=== PATIENT | female | born 1990 | race African-American/Black ===

== ENCOUNTER 2019-01-21 11:29 | Outpatient (CLI) | payer OTHER ==
--- NOTE | 2019-01-21 12:21 | ULT ---
OBSTETRIC SONOGRAM: HISTORY: Second trimester gestation. evaluation. FINDINGS: Multiple transabdominal sonographic views of the gravid uterus show a single intrauterine gestation i n breech presentation. Cervix is closed and 4.5 cm. Grade 0 placenta is anterior. Uterine contraction is seen at times along the anterior wall, deep to the placenta. Amniotic fluid is within normal limits. Four-chamber heart shows motion at 145 bpm. spine and kidneys are intact as visualized. No pearl s intracranial abnormalities are apparent. Three-vessel cord shows a normal insertion. Measurements are as follows: Biparietal diameter 18 weeks 5 days. Head circumference 18 weeks 4 days. Abdominal circumference 18 weeks 4 days. Femur length 19 weeks 4 days. [place] 91 percentile. Estimated date of delivery based on today's sonogram 06/18/2019. IMPRESSION: Single viable intrauterine gestation with estimated gestational age based on today's sonogram of 18 w eeks 6 days. Transcribed Date/Time: 01/21/2019 12:26 PM
== END 2019-01-21 11:30 | disposition home or self-care (01) ==
LOC: SCSULT 11:29
PROVIDERS: ATTEND Family Medicine
DX: Z34.82 Encounter for supervision of other normal pregnancy, second trimester (principal); Z3A.18 18 weeks gestation of pregnancy
CPT/HCPCS: 76805

== ENCOUNTER 2019-05-21 22:15 | Day surgery (SDC) | payer OTHER ==
[2019-05-21 23:04] VITALS: BP 115/73; TEMP 99.1; BMI 24.9
[2019-05-21] MEDS ORDERED: Ondansetron HCl/PF 4 MG in Sodium Chloride 0.9% 50 ML IVPB PRN (23:27)
--- NOTE | 2019-05-21 23:33 | PDOC.LDHP ---
Labor and Delivery H&P Chief complaint: other (vomiting) HPI: 29 y/o at 35w2d, patient of Yvonne Lester, presents with N/V today and unable to tolerate PO. Having some constant abdominal pain and GERD. Denies VB , LOF, ctx, or other concerns. +FM ROS neg for HEENT, cv, pulm, gi, gu, neuro, psych, skin, musculoskeletal or constitutional symptoms other than mentioned above. OB History Details: prior LTCS for NRFHTS Current complications: none Past Medical History: Denies Current medications: pre- vitamins Previous surgical history: low tranverse CS Allergies/Adverse Reactions: Allergies Allergy/AdvReac Type Severity Reaction Status Date / Time No Known Allergies Allergy Unverified 05/21/19 22:53 Social history: none - Physical Exam Vital signs reviewed and normal: yes General: NAD, resting Lungs: nonlabored breathing Abdomen: gravid Extremeties: no edema FHT: category 1 (130s, mod variability, + accels, no decels) Alianza contractions every: irregular - Assessment 29 y/o at 35w2d with N/V, GERD. Given LR and Zofran with resolution of symptoms. Declined SVE but denies feeling ctx. status reassuring with reactive NST. - Plan -: D/c home with precautions. Advised to keep all appointments.
[2019-05-21] MEDS ORDERED: Ondansetron PF 4 MG/2 ML Vial IVP PRN (23:38)
[2019-05-21] MEDS ORDERED: Ondansetron PF 4 MG/2 ML Vial ONE (23:41)
[2019-05-21] MEDS ORDERED: Lactated Ringer's 1,000 ML IV SCH (23:45)
== END 2019-05-22 00:25 | disposition home or self-care (01) ==
LOC: ERS 22:15 → SDC/OP 22:15 → L&D/OP 22:15 → EDSTATUS 22:28 → L&D/OP 05-22 00:25
PROVIDERS: ATTEND Family Medicine
DX: O21.2 Late vomiting of pregnancy (principal); O99.613 Diseases of the digestive system complicating pregnancy, third trimester; K21.9 Gastro-esophageal reflux disease without esophagitis; Z3A.35 35 weeks gestation of pregnancy
CPT/HCPCS: 96360; 96375; 99282; J2405

== ENCOUNTER 2019-06-20 23:45 | Inpatient (IN) | payer MEDICAID, OTHER, SELFPAY ==
[2019-06-21 00:27] VITALS: BMI 25.7
[2019-06-21] MEDS ORDERED: hydrALAZINE 20 MG/ML VIAL SLOW IVP PRN ×3 (00:39→10:50)
[2019-06-21] MEDS ORDERED: Promethazine HCl 25 MG/ML VIAL IM PRN ×2 (00:40→04:40)
[2019-06-21] MEDS: Butorphanol Tartrate 1 MG/ML VIAL SLOW IVP PRN ×2 (01:01→03:32)
[2019-06-21] MEDS ORDERED: Ibuprofen 800 MG TAB PO PRN (03:22)
[2019-06-21] MEDS ORDERED: HYDROcodone/Acetaminophen 5/325 mg Tablet PO PRN ×2 (03:22→10:50)
[2019-06-21] MEDS ORDERED: Lidocaine 1% (PF) 30 ML VIAL SC PRN (03:22)
[2019-06-21] MEDS ORDERED: Ondansetron PF 4 MG/2 ML Vial IVP PRN ×3 (03:22→10:50)
[2019-06-21] MEDS ORDERED: NS / Oxytocin 40 units/1000ml 1,000 ML IV PRN (03:22)
[2019-06-21] MEDS ORDERED: Lactated Ringer's 1,000 ML IV SCH ×2 (03:30)
[2019-06-21 03:48] LABS: Hemoglobin 12.3 g/dL (12.0-16.0); Mean Corpuscular HGB CONC 33.5 g/dL (32.0-36.0); Mean Corpuscular Hemoglobin 29.1 pg (27.0-31.0); Mean Corpuscular Volume 86.8 fL (78.0-98.0); Mean Platelet Volume 8.8 fL (7.4-10.4); Platelet Count 295 thou/uL (130-400); RBC Distribution Width 12.8 % (11.5-14.5); Red Blood Cell (RBC) Count 4.22 mill/uL (4.20-5.40); White Blood Cell (WBC) Count 8.2 thou/uL (4.8-10.8)
[2019-06-21] MEDS ORDERED: Fentanyl 4 mcg/Bup 0.1% Cadd 100 ML ONE (04:11)
[2019-06-21 04:26] LABS: Hep B Surf Ag Non-Reactive S/CO (NonReactive); Syphilis Antibody Nonreactive (Nonreactive); Syphilis Antibody Index 0.04 S/CO (<1.00 Non-Reactive)
[2019-06-21] MEDS ORDERED: Lactated Ringer's 500 ML IV PRN (04:40)
[2019-06-21] MEDS ORDERED: ePHEDrine/0.9% NaCl/PF SYRINGE 50 mg/10 ml SLOW IVP PRN (04:40)
[2019-06-21] MEDS ORDERED: Acetaminophen 325 MG TAB PO PRN (04:40)
[2019-06-21] MEDS ORDERED: Naloxone HCl 0.4 mg/ml Vial IVP PRN ×2 (04:40)
[2019-06-21] MEDS ORDERED: diphenhydrAMINE 50 MG/ML VIAL IVP PRN (04:40)
[2019-06-21] MEDS ORDERED: Communication Order-Pharmacy FS SCH (04:45)
[2019-06-21] MEDS ORDERED: Fentanyl 4 mcg/Bupivacaine 0.1% Cassette 100 ML EPIDURAL SCH (04:45)
[2019-06-21] MEDS ORDERED: Acetaminophen/Codeine 30-300mg Tablet PO PRN (10:50)
[2019-06-21] MEDS ORDERED: NS / Oxytocin 40 units/1000ml 1,000 ML IV SCH (10:50)
[2019-06-21] MEDS ORDERED: Lanolin Ointment 7 GM TUBE TOP PRN (10:50)
[2019-06-21] MEDS ORDERED: Benzocaine-Menthol 82.5 ML CAN TOP PRN (10:50)
[2019-06-21] MEDS ORDERED: Bisacodyl 10 MG SUPP PR PRN (10:50)
[2019-06-21] MEDS ORDERED: Preparation H Ointment 28 GM TUBE PR PRN (10:50)
[2019-06-21] MEDS ORDERED: diphenhydrAMINE 25 MG CAP PO PRN (10:50)
[2019-06-21] MEDS ORDERED: Milk Of Magnesia 30 ML UDCUP PO PRN (10:50)
[2019-06-21] MEDS: Ibuprofen 800 MG TAB PO SCH ×2 (14:03→21:21)
[2019-06-21] MEDS ORDERED: Bupivacaine/Epinephrine 0.25% 30 ML VIAL ONE (15:00)
[2019-06-21] MEDS: Docusate Calcium (SURFAK) 240 MG CAP PO SCH (21:21)
[2019-06-22] MEDS ORDERED: Sodium Chloride 0.9% 10 ML ONE (00:31)
[2019-06-22] MEDS: Ibuprofen 800 MG TAB PO SCH ×3 (06:07→22:21)
--- NOTE | 2019-06-22 07:59 | PDOC.PP ---
Post Progress Note Post Day #: 1 Subjective: Doing well. BF well. C/O some cramping type pain only. Controlled with meds. Wants to go home tomorrow. PO intake tolerated: yes Flatus: yes Ambulation: yes Vital Signs (12 hours) Temp Pulse Resp BP BP Pulse Ox 06/22/19 07:42 98.1 F 66 15 103/69 99 06/22/19 04:45 97.7 F 72 16 99/49 L 99 06/22/19 00:20 98.5 F 72 20 108/65 100 Weight Weight 169 lb - Physical Examination General: NAD Cardiovascular: no m/r/g, RRR Respiratory: clear to auscultation bilaterally, non-labored breathing Abdominal: + bowel sounds, lochia, no distention, appropriately TTP Extremities: negative homans (B) Neurological: no gross focal deficits Result Diagrams: 06/21/19 03:37 Additional Labs: Post Labs Blood Type B NEGATIVE 06/21/19 03:37 Hep Bs Antigen Non-Reactive S/CO (NonReactive) 06/21/19 03:37 (1) , delivered Code(s): O34.219 - MATERNAL CARE FOR UNSP TYPE SCAR FROM PREVIOUS DEL Status: Acute - Assessment/Plan Routine PP care Plan to D/C tomorrow F/U with AD in 2 weeks
[2019-06-22] MEDS: Docusate Calcium (SURFAK) 240 MG CAP PO SCH ×2 (08:11→22:21)
[2019-06-22] MEDS: Prenatal Vitamin 1 TAB PO SCH (08:11)
[2019-06-23] MEDS: Ibuprofen 800 MG TAB PO SCH ×2 (05:53→14:24)
[2019-06-23 08:54] VITALS: BP 108/77; TEMP 98.9
[2019-06-23] MEDS: Docusate Calcium (SURFAK) 240 MG CAP PO SCH (08:54)
[2019-06-23] MEDS: Prenatal Vitamin 1 TAB PO SCH (08:54)
--- NOTE | 2019-06-23 10:12 | PDOC.PP ---
Post Progress Note Post Day #: 2 Subjective: Doing well. Cramping improving. PO intake tolerated: yes Flatus: yes Ambulation: yes Vital Signs (12 hours) Temp Pulse Resp BP Pulse Ox 06/23/19 08:49 98.9 F 75 20 108/77 06/23/19 03:30 98.3 F 66 18 116/70 99 06/22/19 23:41 98.5 F 88 18 119/67 99 Weight Weight 169 lb - Physical Examination General: NAD Cardiovascular: no m/r/g, RRR Respiratory: clear to auscultation bilaterally, non-labored breathing Abdominal: + bowel sounds, lochia, no distention, appropriately TTP Result Diagrams: 06/21/19 03:37 Additional Labs: Post Labs Blood Type B NEGATIVE 06/21/19 03:37 Hep Bs Antigen Non-Reactive S/CO (NonReactive) 06/21/19 03:37 (1) , delivered Code(s): O34.219 - MATERNAL CARE FOR UNSP TYPE SCAR FROM PREVIOUS DEL Status: Acute - Assessment/Plan Routine care D/C home F/U with AD in 6 weeks Pelvic rest Ibuprofen PRN
== END 2019-06-23 14:30 | disposition home or self-care (01) | DRG 807 ==
LOC: L&D/OP 23:45 → L&D 06-21 03:21 → 3SE 06-21 10:17
PROVIDERS: ADMIT Family Medicine; ATTEND Family Medicine
PROC: 10D07Z6 Extraction of Products of Conception, Vacuum, Via Natural or Artificial Opening (ICD-10-PCS; principal; 2019-06-21)
PROC: 3E033VJ Introduction of Other Hormone into Peripheral Vein, Percutaneous Approach (ICD-10-PCS; 2019-06-21)
PROC: 0HQ9XZZ Repair Perineum Skin, External Approach (ICD-10-PCS; 2019-06-21)
PROC: 3E0234Z Introduction of Serum, Toxoid and Vaccine into Muscle, Percutaneous Approach (ICD-10-PCS; 2019-06-22)
DX: O76 Abnormality in fetal heart rate and rhythm complicating labor and delivery (principal); Z37.0 Single live birth; O70.0 First degree perineal laceration during delivery; Z3A.39 39 weeks gestation of pregnancy; O69.81X0 Labor and delivery complicated by cord around neck, without compression, not applicable or unspecified
CPT/HCPCS: 36415; 51702; 85027; 85461; 86780; 86850; 86900; 86901; 87340; 90384; 96372; 99285; J0595; J2001; J2550